=== PATIENT | female | born 1945 | race Two or more races ===

== ENCOUNTER 2019-02-17 04:53 | Day surgery (SDC) | payer OTHER ==
[~2019-02-17 04:53] MED LIST: FOLGARD TABLET1 EACH PO; GLYCOTROL CAPS1 EACH PO; PROBIOTIC1 EAC2 PO; ZINC LOZENGES1 EACH
[2019-02-17] MEDS ORDERED: RECTICARE30 GM TOP (08:33)
[2019-02-17] MEDS ORDERED: PERCOCET 5-3251 EACH PO (08:33)
== END 2019-02-17 12:35 | disposition home or self-care (01) ==
LOC: CIR.AMB 04:53
DX: C44.520 Squamous cell carcinoma of anal skin (principal)